=== PATIENT | female | born 1985 | race Caucasian/White ===

== ENCOUNTER → 2018-07-10 12:20 | Outpatient (CLI) | payer MEDICAID | END | disposition home or self-care (01) | LOC: D.US 12:20 | DX: O35.2XX0 Maternal care for (suspected) hereditary disease in fetus, not applicable or unspecified (principal); Z3A.00 Weeks of gestation of pregnancy not specified ==

== ENCOUNTER → 2018-08-10 10:42 | Outpatient (CLI) | payer MEDICAID | END | disposition home or self-care (01) | LOC: D.LDO 10:42 | DX: O36.5930 Maternal care for other known or suspected poor fetal growth, third trimester, not applicable or unspecified (principal); Z3A.28 28 weeks gestation of pregnancy ==

== ENCOUNTER → 2018-08-14 12:40 | Outpatient (CLI) | payer MEDICAID | END | disposition home or self-care (01) | LOC: D.US 12:40 | DX: O35.2XX0 Maternal care for (suspected) hereditary disease in fetus, not applicable or unspecified (principal); Z3A.00 Weeks of gestation of pregnancy not specified ==

== ENCOUNTER 2018-08-14 20:48 | Outpatient (CLI) | payer MEDICAID | END 2018-08-14 21:03 | disposition home or self-care (01) | LOC: D.LDO 20:48 | DX: O36.5930 Maternal care for other known or suspected poor fetal growth, third trimester, not applicable or unspecified (principal); Z3A.29 29 weeks gestation of pregnancy ==

== ENCOUNTER → 2018-08-18 09:45 | Outpatient (CLI) | payer MEDICAID | END | disposition home or self-care (01) | LOC: D.LDO 09:45 | DX: O36.5930 Maternal care for other known or suspected poor fetal growth, third trimester, not applicable or unspecified (principal); Z3A.29 29 weeks gestation of pregnancy ==

== ENCOUNTER 2018-08-21 19:00 | Outpatient (CLI) | payer MEDICAID | END 2018-08-21 19:45 | disposition home or self-care (01) | LOC: D.LABREF 19:00 | DX: O36.5930 Maternal care for other known or suspected poor fetal growth, third trimester, not applicable or unspecified (principal); Z3A.30 30 weeks gestation of pregnancy ==

== ENCOUNTER → 2018-09-11 11:45 | Outpatient (CLI) | payer MEDICAID ==
[~2018-09-11 11:45] MED LIST: PRENAVITE1 TAB PO
== END | disposition home or self-care (01) ==
LOC: D.US 11:30
DX: Z82.79 Family history of other congenital malformations, deformations and chromosomal abnormalities (principal)

== ENCOUNTER → 2018-10-01 21:02 | Outpatient (CLI) | payer MEDICAID ==
[2018-10-01 21:29] LABS: APPEARANCE CLEAR (CLEAR); BILIRUBIN NEGATIVE (NEGATIVE); COLOR STRAW (YELLOW); GLUCOSE NEGATIVE (NEGATIVE); KETONE NEGATIVE (NEGATIVE); NITRITE NEGATIVE (NEGATIVE); PROTEIN NEGATIVE (NEGATIVE); UROBILINOGEN NORMAL (NORMAL)
== END | disposition home or self-care (01) ==
LOC: D.LDO 21:02
PROVIDERS: Obstetrics & Gynecology
DX: O26.899 Other specified pregnancy related conditions, unspecified trimester (principal); Z3A.00 Weeks of gestation of pregnancy not specified

== ENCOUNTER → 2018-10-07 21:44 | Outpatient (CLI) | payer MEDICAID ==
[~2018-10-07 21:44] MED LIST changes: +IBUPROFEN800 MG PO; +NINGXIA RED PO; +PROBIOTIC BLEN1 EACH PO; +SUPER B PO
[2018-10-07 22:19] LABS: APPEARANCE CLEAR (CLEAR); BILIRUBIN NEGATIVE (NEGATIVE); COLOR YELLOW (YELLOW); GLUCOSE 50 mg/dL (NEGATIVE); KETONE NEGATIVE (NEGATIVE); NITRITE NEGATIVE (NEGATIVE); PROTEIN NEGATIVE (NEGATIVE); SPECIFIC GRAVITY 1.015 (1.005-1.020); UROBILINOGEN NORMAL (NORMAL)
[2018-10-14 12:25] VITALS: BMI 26.8
== END | disposition home or self-care (01) ==
LOC: D.LDO 21:44
PROVIDERS: ATTEND Obstetrics & Gynecology
DX: O26.893 Other specified pregnancy related conditions, third trimester (principal); Z3A.36 36 weeks gestation of pregnancy

== ENCOUNTER 2018-10-14 10:09 | Inpatient (IN) | payer MEDICAID ==
[~2018-10-14] VITALS: Ht 160 cm; Wt 68.5 kg
[~2018-10-14 10:09] MED LIST changes: -IBUPROFEN800 MG PO; -NINGXIA RED PO; -PROBIOTIC BLEN1 EACH PO; -SUPER B PO
[2018-10-14] MEDS ORDERED: PROBIOTIC BLEN1 EACH PO (12:20)
[2018-10-14 12:21] LABS: HEMATOCRIT 33.7 % (36.0-48.0); HEMOGLOBIN 11.3 g/dL (12-16); MCH 29.7 pg (26.0-34.0); MCHC 33.5 g/dL (31.0-37.0); MCV 88.5 fL (80.0-100.0); MEAN PLATELET VOLUME 10.7 fL (7.4-10.4); RBC 3.81 10x6/uL (4.00-5.40); RDW 13.5 % (11.5-14.5); WBC 11.9 10x3/uL (4.8-10.8)
[2018-10-14] MEDS ORDERED: NINGXIA RED PO (12:22)
[2018-10-14] MEDS ORDERED: SUPER B PO (12:24)
[2018-10-14 12:25] VITALS: BP 118/66; Ht 160 cm; Wt 68.5 kg
[2018-10-14 19:50] VITALS: BP 126/78
--- NOTE | 2018-10-14 20:24 | NUR ---
PT. AWAKENED TO THIS NURSE IN ROOM. DENIES ANY PAIN AT THIS TIME. FUNDUS FIRM U/2 AND LOCHIA RUBRA SCANT TO MOD. IV SALINE LOCK NOTED IN RT WRIST AREA. BREATH SOUNDS CLEAR AND BOWEL SOUNDS AUDIBLE. DISCUSSED WITH PT. ABOUT ROUTINE MED SCHEDULE. PT. STATES THAT SHE WOULD RATHER NOT BE AWAKENED FOR MEDICATION. DISCUSSED WITH PT. WHENEVER SHE DECIDES TO SLEEP, SHE MAY CALL THIS NURSE ANYTIME THAT SHE DESIRES THE MOTRIN OR TYLENOL AND IT WILL BE BROUGHT TO HER. PT. AGREEABLE. STATES SHE PLANS TO BREASTFEED. ASKED PT. IF SHE DESIRED ANYTHING TO EAT. DISCUSSED NOURISHMENTS AVAILABLE. ICE WATER, ICE, SANDWICH TRAY AND CHOCOLATE PUDDING SERVED TO PT. PT. ALSO REQUESTED MILK BUT UNAVAILABLE ON THIS UNIT. DIAL BRUSHER CALLED.
--- NOTE | 2018-10-14 20:25 | NUR ---
MILK SECURED FOR PT. FROM SECOND FLOOR. TO ROOM. AT PRESENT. 1/2 OF SANDWICH TRAY EATED AND PUDDINGS. PT. CHEERFUL AND DENIES ANY FURTHER NEEDS.
--- NOTE | 2018-10-14 21:30 | NUR ---
PT. HOLDING . REPORTS THAT SHE HAD CRAMPING WITH . RATES PAIN A 4 OF 10 ON PAIN SCALE. SCHEDULED TYLENOL GIVENH ORDERED. DISCUSSED SITZ BATH AND INQUIRED WHEN PT. DESIRED. EXPLAINED THE PURPOSE OF THE SITZ BATH. PT. STATES SHE WOULD LIKE TO SEND INFANT BACK TO [facility] AND THEN GET A SITZ BATH AND VOID AT SAME TIME. TO [facility] PER THIS NURSE.
--- NOTE | 2018-10-14 21:48 | NUR ---
SITZ BATH PREPARED AND PT. INTO BATHROOM. STATES WITH CRAMPING SHE SPILLED OVER SINGLE LUKE PAD. PT. MENTIONED THAT SHE SHOULD PROBABLY USE TWO PADS. ENCOURAGED TO DO SAME. TO SITZ BATH.
--- NOTE | 2018-10-14 21:53 | NUR ---
SITZ BATH COMPLETED AND PT. APPLYING PAD AND LUKE PANTIES. APPROX. 3CM CLOT NOTED IN SITZ BATH. REASSURED PT. NO ACTIVE VAGINAL BLEEDING NOTED AT THIS TIME. SPOT OF BLOOD ON TOP SHEET. PARTIAL LINEN CHANGE DONE. PT STATES SHE HAS BROUGHT OWN OILS TO APPLY TO PERINEAL AREA THAT HELPED WITH HER LAST DELIVERY. OPTS NOT TO USE MEDS SUPPLIED.
--- NOTE | 2018-10-14 22:00 | NUR ---
ICE WATER AND ICE PROVIDED. PT. TALKATIVE. STATES SHE HAS HELP AT HOME UNTIL TUESDAY. FUNDUS FIRM U2 AND MIDLINE. PT. STATES SHE WILL CHANGE HER PAD BEFORE THE NEXT TIME.
[2018-10-14 22:05] VITALS: BP 126/70
--- NOTE | 2018-10-14 22:40 | NUR ---
LYING ON LT SIDE WITH PILLOW OVER SIDE AND FACE AND EAR. RESPIRATIONS UNLABORED. EYES CLOSED.
--- NOTE | 2018-10-14 23:45 | NUR ---
PT. CALLED REQUESTING MOTRIN. RATES PAIN A 4 OF 10 ON PAIN SCALE. MED GIVEN ORDERED. REQUESTING SALINE TO PUT IN NOSE STATING THAT SHE HAS BLOWN NOSE SO OFTEN THAT IT IS DRY AND BLEEDING A SMALL AMT. INFORMED WOULD CALL MD FOR ORDER, DISCUSSED WITH PT. ABOUT KEEPING SKIN TO SKIN WHILE IN ROOM DUE TO TEMP. INSTABILITY. PT. STATES THAT SHE HAS BEEN TRYING. STATES ALL HER CHILDREN HAD THAT PROBLEM. PT. ROOM TEMP. WARM. SITTING UP IN BED FILLING OUT [facility] PAPERWORK.
--- NOTE | 2018-10-15 00:18 | NUR ---
INFANT OUT FOR .
--- NOTE | 2018-10-15 00:30 | NUR ---
PT. AT PRESENT. STATES PAIN REMAINS AT A 4 OF 10 BUT STATES IF WILL NOT CHANGE UNTIL SHE IS FINISHED . AT BREAST WITH GOOD LATCH. INFANT SKIN TO SKIN WITH PT. AND ALSO HAS A BLANKET OVER . ROOM TEMP. WARM. PT.STATES THAT WHEN SHE IS FINISHED SHE DESIRES TO SEND TO THE NURSERY UNTIL THE NEXT FEEDING SO SHE CAN SLEEP. INFORMED TO CALL [facility] WHEN SHE DESIRES.
--- NOTE | 2018-10-15 01:15 | NUR ---
INFANT RETURNED TO [facility]. PT. ON BACK WITH HOB AT 45 DEGREES. WILL BE RETURNED AT TIME OF NEXT FEEDING.
--- NOTE | 2018-10-15 03:00 | NUR ---
LYING ON BACK WITH HOB AT 15 DEGREES. PILLOW POSITIONED OVER LT SIDE OF FACE. RESPIRATIONS UNLABORED.
--- NOTE | 2018-10-15 04:27 | NUR ---
INFANT INTO ROOM FOR . PT. AWAKENED WITH NURSE ENTERING ROOM. TYLENOL GIVEN ORDERED. PT. RATES PAIN A 3 OF 10 ON PAIN SCALE. ICE WATER PROVIDED.
[2018-10-15 06:57] LABS: BASOPHILS 0.1 % (0-2); EOSINOPHILS 1.5 % (0-7); HEMATOCRIT 31.2 % (36.0-48.0); IMMATURE GRANULOCYTES 0.4 % (0-5); LYMPHOCYTES 17.6 % (15-50); MCH 28.9 pg (26.0-34.0); MCHC 32.1 g/dL (31.0-37.0); MCV 90.2 fL (80.0-100.0); MEAN PLATELET VOLUME 10.4 fL (7.4-10.4); MONOCYTES 10.6 % (2-11); NEUTROPHILS 69.8 % (40-80); PLATELET COUNT 186 10x3/uL (130-400); RBC 3.46 10x6/uL (4.00-5.40); RDW 13.5 % (11.5-14.5)
[2018-10-15 07:13] LABS: WBC 18.1 10x3/uL (4.8-10.8)
[2018-10-15 08:00] VITALS: BP 110/70
--- NOTE | 2018-10-15 08:00 | NUR ---
RECEIVED PT SITTING UPRIGHT IN BED . VSS. AAO X 3. HRRR WITHOUT AUDIBLE MURMUR. BBS CLEAR. BS X 4. ABDOMEN SOFT/NON-DISTENDED. PT STATES PASSING GAS, NO BM SINCE DELIVERY. FUNDUS FIRM AT U/2. RUBRA LOCHIA SMALL AMT ON PERIPAD. PT STATES HAS HAD A LOT OF BLEEDING THROUGHOUT NIGHT. STATES ALL PERIPAD IN BATHROOM TRASH. 5 PERIPADS NOTED WITH HALF FULL OF RUBRA LOCHIA, ONE SOAKED. 3 PERIPADS WITH NO LOCHIA NOTED. ALL TRASH REMOVED FROM ROOM TO DO PAD COUNT. PT INSTRUCTED TO KEEP ALL CHANGED PADS OUT FOR NURSE TO SEE. PT STATES HAD ONE LARGE CLOT AFTER SITZ BATH LAST PM. PT DENIES ANY CLOTS SINCE. WILL CONTINUE TO MONITOR BLEEDING. NEG HOMANS' SIGN. PPP. MILD, NON-PITTING EDEMA NOTED TO BLE. PT STATES "MY LEGS AND FEET ARE REALLY SWOLLEN". SL TO RIGHT WRIST CLEAR. NO REDNESS, SWELLING OR DRAINAGE NOTED TO SITE. HOUSEKEEPING NOTIFIED OF NEED FOR TRASH BAGS TO BE REPLACED AND PAPER TOWELS FOR BATHROOM. SR UP X 2. CALL LIGHT IN REACH. PT VOICES NO OTHER C/O OR NEEDS.
--- NOTE | 2018-10-15 09:21 | NUR ---
PT STATES WILL TAKE MOTRIN NOW. MOTRIN 800 MG GIVEN PO. INSTRUCTED ON MED. VERBALIZES UNDERSTANDING. SITZ BATH SET UP FOR PT. PT TO BR AT THIS TIME. WASHCLOTHS PROVIDED TO PT AT PT REQUEST. STATES WILL SPONGE BATHE AFTER SITZ BATH.
--- NOTE | 2018-10-15 10:30 | NUR ---
PT SITTING UP IN BED. VISITS WITH SO. REQUESTS AND RECEIVES SANDWICH TRAY AND COFFEE MADE FOR SPOUSE.
--- NOTE | 2018-10-15 11:43 | NUR ---
DR HOUSTON VISITS WITH PT. STATES WILL PUT ORDERS FOR DISCHARGE IN [facility]. STATES TO CANCEL DISCHARGE ORDER IF NOT DISCHARGED TODAY.
[2018-10-15] MEDS ORDERED: IBUPROFEN800 MG PO (11:46)
--- NOTE | 2018-10-15 13:26 | NUR ---
PT SITTING UP IN BED. CARING FOR INFANT. DENIES C/O PAIN OR NEEDS.
--- NOTE | 2018-10-15 15:00 | NUR ---
PT AMBULATORY IN ROOM. DENIES C/O OR NEEDS.
--- NOTE | 2018-10-15 16:44 | NUR ---
MMR VACCINE 0.5 ML GIVEN SQ TO LEFT OUTER ARM. PT GUNNAR WELL.
--- NOTE | 2018-10-15 17:10 | NUR ---
DISCHARGE INSTRUCTIONS GIVEN TO PT. PT VERBALIZES UNDERSTANDING OF ALL INSTRUCTIONS. COPIES GIVEN TO PT. SL DC'D WITH [employer]HELON INTACT. PRESSURE BANDAGE TO SITE. PT GUNNAR WELL.
--- NOTE | 2018-10-15 17:20 | NUR ---
PT READY FOR DISCHARGE. DISCHARGED IN STABLE CONDITION VIA WHEELCHAIR WITH TO PRIVATE VEHICLE.
== END 2018-10-15 17:20 | disposition home or self-care (01) | DRG 807 ==
LOC: D.LDO 10:09 → D.LD 11:14
PROVIDERS: ADMIT Obstetrics & Gynecology; ATTEND Obstetrics & Gynecology
PROC: 10E0XZZ Delivery of Products of Conception, External Approach (ICD-10-PCS; principal; 2018-10-14)
PROC: 10907ZC Drainage of Amniotic Fluid, Therapeutic from Products of Conception, Via Natural or Artificial Opening (ICD-10-PCS; 2018-10-14)
PROC: 0HQ9XZZ Repair Perineum Skin, External Approach (ICD-10-PCS; 2018-10-14)
DX: O36.5930 Maternal care for other known or suspected poor fetal growth, third trimester, not applicable or unspecified (principal); Z37.0 Single live birth; Z3A.38 38 weeks gestation of pregnancy; O69.81X0 Labor and delivery complicated by cord around neck, without compression, not applicable or unspecified; O70.0 First degree perineal laceration during delivery; O90.81 Anemia of the puerperium; O26.893 Other specified pregnancy related conditions, third trimester; Z67.91 Unspecified blood type, Rh negative